=== PATIENT | female | born 1985 | race Caucasian/White ===

== ENCOUNTER 2019-05-29 09:14 | Emergency (ER) | payer SELFPAY ==
[~2019-05-29] VITALS: Ht 152.4 cm; Wt 53.0 kg
[2019-05-29] MEDS ORDERED: IBUPROFEN 600MG TABLET PO ONE (11:15)
[2019-05-29] MEDS ORDERED: FLUORESCEIN SODIUM 1MG/STRIP OP ONE (11:15)
[2019-05-29] MEDS ORDERED: TETRACAINE 0.5% OPHTH DROPS 4ML OP ONE (11:15)
[2019-05-29 13:22] VITALS: BP 115/71
== END 2019-05-29 13:22 | disposition home or self-care (01) ==
LOC: ER 09:53
DX: H10.9 Unspecified conjunctivitis (principal)
CPT/HCPCS: 99284

== ENCOUNTER 2019-06-07 21:41 | Emergency (ER) | payer SELFPAY ==
[~2019-06-07] VITALS: Ht 152.4 cm; Wt 53.0 kg
[2019-06-07 22:04] VITALS: BP 130/70
[2019-06-07] MEDS ORDERED: ACETAMINOPHEN 325MG TABLET PO ONE (22:30)
[2019-06-07] MEDS ORDERED: METHYLPREDNISOLONE SOD SUCC 125 MG/2 ML VIAL IM ONE (22:30)
[2019-06-07] MEDS ORDERED: DIPHENHYDRAMINE 50MG/ML VIAL IM ONE (22:30)
== END 2019-06-08 00:04 | disposition left against medical advice (07) ==
LOC: ER 21:41
DX: L50.0 Allergic urticaria (principal)
CPT/HCPCS: 96372; 99283; J1200; J2930